=== PATIENT | female | born 1985 | race Caucasian/White ===

== ENCOUNTER 2019-01-30 16:48 | Inpatient (IN) | payer BC ==
[2019-01-30 17:12] VITALS: BMI 28.5
[2019-01-30] MEDS ORDERED: Lactated Ringer's 1,000 ML IV ONE (17:26)
[2019-01-30] MEDS ORDERED: Lactated Ringer's 1,000 ML IV SCH (17:30)
[2019-01-30 18:07] LABS: BASO % 0.2 % (0.0-2.0); EOS # 0.1 K/uL (0.0-0.7); EOS % 0.7 % (0.0-4.0); HEMOGLOBIN 13.2 g/dL (11.0-16.0); LYMPH # 1.2 K/uL (1.0-4.3); LYMPH % 15.2 % (20.0-40.0); MEAN CELL VOLUME 92.1 fL (81.0-99.0); MEAN CORPUSCULAR HEMOGLOBIN 30.9 pg (27.0-31.0); MEAN CORPUSCULAR HGB CONC 33.5 g/dL (33.0-37.0); MEAN PLATELET VOLUME 8.6 fL (7.2-11.7); MONO # 0.7 K/uL (0.0-0.8); MONO % 8.6 % (0.0-10.0); NEUT % 75.3 % (50.0-75.0); NRBC % 0.1 % (0.0-2.0); RBC 4.26 Mil/uL (3.80-5.20); RED CELL DISTRIBUTION WIDTH 14.3 % (11.5-14.5); WHITE BLOOD COUNT 7.9 K/uL (4.8-10.8)
[2019-01-30 18:10] LABS: ALB/GLOB RATIO 1.3 (1.0-2.1); ALT/SGPT 14 U/L (9-52); AST/SGOT 21 U/L (14-36); BLOOD UREA NITROGEN 9 mg/dL (7-17); CALCIUM 10.3 mg/dl (8.6-10.4); GFR NON-AFRICAN AMERICAN > 60; SQUAMOUS EPITHIAL 6 /hpf (0-5); URINE BACTERIA RARE (<OCC); URINE BILIRUBIN NEGATIVE (NEGATIVE); URINE BLOOD NEGATIVE (NEGATIVE); URINE CLARITY Clear (Clear); URINE COLOR Yellow (YELLOW); URINE GLUCOSE (UA) NORMAL (Normal); URINE LEUKOCYTE ESTERASE NEG Leu/uL (Negative); URINE PROTEIN NEGATIVE (NEGATIVE); URINE UROBILINOGEN NORMAL mg/dL (0.2-1.0)
[2019-01-30 18:31] LABS: BARBITURATES, UR NEGATIVE (NEGATIVE); BENZODIAZEPINES, UR NEGATIVE (NEGATIVE); OPIATES, UR NEGATIVE (NEGATIVE); PHENCYCLIDINE, UR NEGATIVE (NEGATIVE)
[2019-01-30] MEDS ORDERED: Nalbuphine HCL 10 mg/ml Ampule IVP PRN (19:31)
--- NOTE | 2019-01-30 19:32 | OBADHP ---
Datetime: 01/30/2019 17:53 IP Chief Complaint Other: induction of labor Admit Comment, IP Provider: 33 year old at 38.5 weeks with ROSIE at 02/08/19 by first trimester US presents to the OB ED for a scheduled induction per Dr. Small's request, secondary to her GDM. P atient denies being in any pain. She also denies vaginal bleeding and fluid leakage. Patient endorses movement and contractions. She is unsure how many contractions she feels a day but if she coul d guess she feels tightening and releasing about twice a day. Patient has had some low back pain duri ng her sleep but now not in any pain. course has overall been uncomplicated except for GDM a nd newly diagnosed anemia during . She last saw Dr. Small 5 days ago, who did a cervical ex am on her. Patient does not recall Dr. Small telling her exam findings. Today patient denies fever, chills, nausea, vomiting, chest pain. OB hx: First term currently. Had an elective at 8 weeks 3 years ago, non-surgic ally via PO medication. 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 Denies history of STIs and fibroids. Menarche at 14 y/o, monthly cycle, 4 days total with first 2 days heavier than the last 2. PMHx: GDM, and anemia discovered during PSHx: denies FHx: mom with HTN and DM. Dad with DM. No known fhx of CA. SocHx: denies EtOH, tob, and illicit drug use. Lives with her in . Workes in [place] in [employer] for [employer]. Meds: PNV, iron qAM, vit D qWeek All: NKDA vitals and PE - see above A/P: 33 year old at 38.5 weeks with ROSIE at 02/08/19 by first trimester US presents to the OB ED for a scheduled induction per Dr. Small's request, secondary to her GDM. -check NST -admit for IOL - cytotec -CBC, T_S, CMP, UA, RPR -NPO -IVF -fingersticks q4h due to GDM case discussed with Dr. Clemente Bang PGY1 Extremities - PN: Normal Abdomen - PN: Normal Lungs - PN: Normal Heart - PN: Normal Thyroid - PN: Not Done Neurologic - PN: Not Done HEENT - PN: Not Done General - PN: Normal Comments, ACOG Physical Exam: fundal height of 36 cm IP Hx Assessment: The History has been Reviewed and is Current IP Chief Complaint: Other Dilatation, Provider: 0 Effacement, Provider: 0 Genitourinary Exam: Normal DTRs - PN: Not Done EGA AdmitDate IP: 38.5 IP Adm Impression: Term, intrauterine IP Admit Plan: Admit to unit; Initiate labor induction protocol
--- NOTE | 2019-01-30 19:37 | OBHP ---
Datetime: 01/30/2019 17:53 IP Adm Impression: Term, intrauterine IP Chief Complaint Other: induction of labor IP Admit Plan: Admit to unit; Initiate labor induction protocol Admit Comment, IP Provider: 33 year old at 38.5 weeks with ROSIE at 02/08/19 by first trimester US presents to the OB ED for a scheduled induction per Dr. Small's request, secondary to her GDM. P atient denies being in any pain. She also denies vaginal bleeding and fluid leakage. Patient endorses movement and contractions. She is unsure how many contractions she feels a day but if she coul d guess she feels tightening and releasing about twice a day. Patient has had some low back pain duri ng her sleep but now not in any pain. course has overall been uncomplicated except for GDM a nd newly diagnosed anemia during . She last saw Dr. Small 5 days ago, who did a cervical ex am on her. Patient does not recall Dr. Small telling her exam findings. Today patient denies fever, chills, nausea, vomiting, chest pain. OB hx: First term currently. Had an elective at 8 weeks 3 years ago, non-surgic ally via PO medication. 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 Denies history of STIs and fibroids. Menarche at 14 y/o, monthly cycle, 4 days total with first 2 days heavier than the last 2. PMHx: GDM, and anemia discovered during PSHx: denies FHx: mom with HTN and DM. Dad with DM. No known fhx of CA. SocHx: denies EtOH, tob, and illicit drug use. Lives with her in . Workes in [place] in [employer] for [employer]. Meds: PNV, iron qAM, vit D qWeek All: NKDA vitals and PE - see above A/P: 33 year old at 38.5 weeks with ROSIE at 02/08/19 by first trimester US presents to the OB ED for a scheduled induction per Dr. Small's request, secondary to her GDM. -check NST -admit for IOL - cytotec -CBC, T_S, CMP, UA, RPR -NPO -IVF -fingersticks q4h due to GDM case discussed with Dr. Clemente Bang PGY1 Attending Note: patient seen, evaluated and examined by me with the resident. I agree with the abo ve as documented. It was D/W patient the following: cevical ripening agent, pain medications, upon re quest; posssible AROM, pitocin. Patient expressed an understanidng and agrees with this plan. No ques tions offered. Patient is in stable condition. - Dr. Small is aware Extremities - PN: Normal Abdomen - PN: Normal Lungs - PN: Normal Heart - PN: Normal Thyroid - PN: Not Done Neurologic - PN: Not Done HEENT - PN: Not Done General - PN: Normal Comments, ACOG Physical Exam: fundal height of 36 cm IP Hx Assessment: The History has been Reviewed and is Current EGA AdmitDate IP: 38.5 IP Indication for Induction: Maternal Diabetes IP Chief Complaint: Other Dilatation, Provider: 0 Effacement, Provider: 0 Genitourinary Exam: Normal DTRs - PN: Not Done
[2019-01-31] MEDS ORDERED: Nalbuphine HCL 10 mg/ml Ampule ONE (02:24)
[2019-01-31] MEDS ORDERED: Oxytocin 30 UNIT in NS 500 ml 30 UNITS/500 ML BAG IV SCH (05:45)
[2019-01-31] MEDS ORDERED: Fentanyl/Bupivacaine HCl 250 ML EPI ONE (06:55)
--- NOTE | 2019-01-31 07:04 | OBPN ---
Datetime: 01/31/2019 07:00 IP Procedures: Sterile Vag Exam Contraction Comments Provider: q1-4 FHR - Baseline A Provider: 130 IP Progress Note Comment: pt was exa,imed at bed side ve /-3 pt req epidural will put aaron baloon later Vital Signs Provider: Reviewed; Within Normal Limits NICHD Accel Fetus A IP Provider: 15X15 FHR Category Provider Fetus A: Category I NICHD Variability Prov Fetus A: Moderate 6-25bpm Dilatation, Provider: 1 Effacement, Provider: 50 Station, Provider: -3
[2019-01-31] MEDS: Dextrose 5%/Lactated Ringer's 1,000 ML IV SCH ×2 (11:10→19:24)
--- NOTE | 2019-01-31 12:36 | OBPN ---
Datetime: 01/31/2019 12:33 IP Progress Impression: Normal progression of labor IP Procedures: Sterile Vag Exam Contraction Comments Provider: q1-4 FHR - Baseline A Provider: 130 IP Progress Note Comment: pt was examined at bed side ve 4-5/70/-2 arom agnieszka san reoved laeral post NICHD Accel Fetus A IP Provider: 15X15 FHR Category Provider Fetus A: Category I NICHD Variability Prov Fetus A: Moderate 6-25bpm Dilatation, Provider: 5 Effacement, Provider: 70 Station, Provider: -2
--- NOTE | 2019-01-31 17:25 | OBPN ---
Datetime: 01/31/2019 17:22 IP Progress Impression: Normal progression of labor IP Procedures: Sterile Vag Exam Contraction Comments Provider: q1-4 FHR - Baseline A Provider: 140 IP Progress Note Comment: pt is was examined at bed side ve /-1 plan cont pitcin anticipate Vital Signs Provider: Reviewed; Within Normal Limits NICHD Accel Fetus A IP Provider: 15X15 FHR Category Provider Fetus A: Category I NICHD Variability Prov Fetus A: Moderate 6-25bpm Dilatation, Provider: 6 Effacement, Provider: 80 Station, Provider: -1
[2019-01-31] MEDS ORDERED: Penicillin G Potassium 5 MU in Dextrose 5% In Water 50 ML IV ONE (19:30)
[2019-01-31] MEDS ORDERED: Penicillin G 5 Million Unit Vial IVPB ONE (19:34)
[2019-01-31] MEDS ORDERED: Sodium Citrate/Citric Acid 15 ml Sol ONE (20:07)
[2019-01-31] MEDS ORDERED: cefOXitin IV 2 gm in Dextrose 2 GM/50 ML BAG IVPB ONE (20:07)
[2019-01-31] MEDS ORDERED: Oxytocin 20 units in LR 2,000 ML IV ONE (20:08)
[2019-01-31] MEDS ORDERED: Oxytocin 10 Units/ml Inj ONE (20:09)
[2019-01-31] MEDS ORDERED: Sodium Bicarbonate (8.4%) 50 mEq Vial ONE (20:12)
[2019-01-31] MEDS ORDERED: Lidocaine 2% MPF (5 ml) Inj ONE ×2 (20:16→20:42)
[2019-01-31] MEDS ORDERED: Midazolam 2 MG/2 ML VIAL ONE (20:42)
[2019-01-31] MEDS ORDERED: Oxycodone/Acetaminophen 5/325 mg Tab PO PRN (20:59)
--- NOTE | 2019-01-31 21:00 | OBPN ---
Datetime: 01/31/2019 20:55 IP Progress Impression: Non-reassuring heart rate IP Procedures: Sterile Vag Exam Contraction Comments Provider: q1-4 FHR - Baseline A Provider: 190 IP Progress Note Comment: pt was examinedec at bed side ve fd/100/=1 tachy plan called for c/s r/a/b FHR Category Provider Fetus A: Category II NICHD Variability Prov Fetus A: Moderate 6-25bpm Dilatation, Provider: 10 Effacement, Provider: 100 Station, Provider: -1
[2019-01-31] MEDS ORDERED: HYDROmorphone 0.5 mg/0.5 ml ISec IVP PRN (21:09)
[2019-01-31] MEDS ORDERED: cefOXitin IV 2 gm in Dextrose 2 GM/50 ML BAG IVPB STA (22:00)
[2019-02-01] MEDS: Oxycodone/Acetaminophen 5/325 mg Tab PO PRN ×2 (01:27→06:44)
[2019-02-01] MEDS: Simethicone 80 mg Chewtab PO SCH ×5 (01:27→21:09)
[2019-02-01] MEDS: Dextrose 5%/Lactated Ringer's 1,000 ML IV SCH (01:35)
--- NOTE | 2019-02-01 06:57 | OBPPN ---
Datetime: 02/01/2019 06:49 PP Pain Prov: Within normal limits PP Nausea Prov: Denies PP Abdomen/Uterus Prov: Normal PP Lochia Prov: Normal PP Extremities Prov: Normal PP C/S Incision Prov: Normal PP Impression Prov: Normal progression PP Plan Prov: Continue present management PP Progress Note Prov: pt was seen at be damascener, painunder control,no n/v, waiting to void odZ#1 cbc dvance deit cont pain ma encourage am Vital Signs Provider PP: Reviewed; Within Normal Limits
[2019-02-01 08:34] LABS: WHITE BLOOD COUNT 11.5 K/uL (4.8-10.8)
[2019-02-01 08:53] LABS: MEAN CELL VOLUME 92.4 fL (81.0-99.0); MEAN CORPUSCULAR HEMOGLOBIN 32.1 pg (27.0-31.0); MEAN CORPUSCULAR HGB CONC 34.8 g/dL (33.0-37.0); MEAN PLATELET VOLUME 8.6 fL (7.2-11.7); RBC 3.4 Mil/uL (3.80-5.20); RED CELL DISTRIBUTION WIDTH 14.3 % (11.5-14.5)
[2019-02-01 08:56] LABS: HEMOGLOBIN 10.9 g/dL (11.0-16.0)
[2019-02-01] MEDS: Prenatal Multivit/Folic Acid/Iron Tab PO SCH (12:24)
[2019-02-01] MEDS ORDERED: Bisacodyl 5mg EC Tab PO ONE (20:59)
[2019-02-02] MEDS: Oxycodone/Acetaminophen 5/325 mg Tab PO PRN ×4 (00:10→22:21)
--- NOTE | 2019-02-02 09:32 | OBPPN ---
Datetime: 02/02/2019 09:28 PP Pain Prov: Within normal limits PP Nausea Prov: Denies PP Flatus Prov: Yes PP BM Prov: Yes PP Abdomen/Uterus Prov: Normal PP Lochia Prov: Normal PP Extremities Prov: Normal PP C/S Incision Prov: Normal PP Impression Prov: Normal progression PP Plan Prov: Continue present management PP Progress Note Prov: pt was seen at bed side, pain uner control,no n/v, olerating deit, voiding, m in lochia, flatus+ pod#2 cont post op care cont pain logan encourage amb Vital Signs Provider PP: Reviewed; Within Normal Limits
[2019-02-02] MEDS: Simethicone 80 mg Chewtab PO SCH ×4 (09:53→22:25)
[2019-02-02] MEDS: Prenatal Multivit/Folic Acid/Iron Tab PO SCH (09:53)
[2019-02-02] MEDS ORDERED: Tdap Vaccine 0.5 ml Vial (10-64 yrs) IM ONE (10:00)
[2019-02-03] MEDS: Oxycodone/Acetaminophen 5/325 mg Tab PO PRN (06:02)
[2019-02-03 08:01] VITALS: BP 116/65; PULSE 62; RESP 18; O2SAT 97
[2019-02-03] MEDS: Simethicone 80 mg Chewtab PO SCH (09:59)
[2019-02-03] MEDS: Prenatal Multivit/Folic Acid/Iron Tab PO SCH (09:59)
[2019-02-03 17:58] VITALS: TEMP 97.2
--- NOTE | 2019-02-07 11:16 | OP ---
PROCEDURE DATE: 01/31/2019 SURGEON: Nathan Small MD BISTRO ATTENDANT: Jay France MD, who was present throughout the surgery. PREOPERATIVE DIAGNOSIS: Non-reassuring heart tracing, arrest of descent. POSTOPERATIVE DIAGNOSIS: Non-reassuring heart tracing, arrest of descent. COMPLICATIONS: None. ANESTHESIA: Epidural. ANESTHESIOLOGIST: Santiago Thomas MD ESTIMATED BLOOD LOSS: 800 mL. PROCEDURE PERFORMED: Primary section. DESCRIPTION OF PROCEDURE: After informed consent was obtained, the patient was brought to the operating room and placed on table where an epidural anesthesia was found to be sufficient. She was prepped and draped in a normal sterile fashion. About 2 cm above the pubic bone, a skin incision was made with a knife, and the subcutaneous tissue was cut with the Bovie. The fascia was then excised on both the sides using curved Polanco scissors. The fascia was from the site of the umbilicus and the site of the pubic bone. Rectus muscle was , peritoneum was incised, and we went into the abdominal cavity. Bladder blade was placed. Bladder flap was created. The lower uterine segment incision was made with a knife. It was extended using Bovie and curved Polanco scissors. Baby was delivered in a direct occiput position. Cord was clamped and cut. There was a reduced. Cord gas was taken. Cord blood was taken. The baby was handed to awaiting welder metal fab, placenta delivered manually, and sent off for pathology. Placenta cultures were taken. The uterus was exteriorized and cleared of all clots and debris. The uterine was very boggy. Extra Pitocin was given. Hemabate was given. Lot of massage was done. After that, uterine incision was closed using #1 Vicryl in a running interlocking fashion. The second layer was closed with the same stitch. Tubes and ovaries looked fairly normal. The uterus was returned back to abdominal cavity. After that, gutters were cleared of all clots and debris. After that, the peritoneum was closed using 2-0 Vicryl in a running interlocking fashion. The muscle was closed using 2-0 Vicryl in a running interlocking fashion. Fascia was closed in a running interlocking fashion. Subcutaneous tissue was closed in interrupted fashion. Skin was closed using 3-0 Monocryl straight needle. The patient tolerated the procedure well. Lap, sponge, and instrument counts were correct x2. Nathan Small MD
== END 2019-02-03 13:57 | disposition home or self-care (01) | DRG 788 ==
LOC: C.EROB 16:48 → C.4D 17:26 → C.4LDOR 01-31 12:34 → C.4D 01-31 13:45 → C.4M 01-31 23:17
PROVIDERS: ADMIT Obstetrics & Gynecology; ATTEND Obstetrics & Gynecology
PROC: 3E0P7VZ Introduction of Hormone into Female Reproductive, Via Natural or Artificial Opening (ICD-10-PCS; 2019-01-30)
PROC: 10D00Z1 Extraction of Products of Conception, Low, Open Approach (ICD-10-PCS; principal; 2019-01-31)
DX: O24.420 Gestational diabetes mellitus in childbirth, diet controlled (principal); O76 Abnormality in fetal heart rate and rhythm complicating labor and delivery; O99.02 Anemia complicating childbirth; D64.9 Anemia, unspecified; Z3A.38 38 weeks gestation of pregnancy; Z37.0 Single live birth; Z82.49 Family history of ischemic heart disease and other diseases of the circulatory system; Z83.3 Family history of diabetes mellitus